=== PATIENT | male | born 1940 | race Two or more races ===

== ENCOUNTER 2019-04-18 13:39 | Day surgery (SDC) | payer MEDICARE ==
[~2019-04-18] VITALS: Ht 167.6 cm; Wt 93.1 kg
[2019-04-18] VITALS (8 sets, daily range): BP systolic 123–164; BP diastolic 62–83
[~2019-04-18 13:39] MED LIST: ACET-2119 PO; ASPI-611 PO; ATOR10TA87 PO; BISA10SU60 RC; DOCU-28 PO; FLO0.4C PO; HYDR-4353 PO; IPRA3AMP31 IH; LINA290C PO; LIPA1CAP28 PO; MAGN800O PO; METO25TA6 PO; NA P133E4 RC; NORCO10T PO; OMEP40CA13 PO; TEMA15CA5 PO; maalox
[2019-04-18] MEDS ORDERED: normal saline 1,000 ML IV SCH (14:00)
[2019-04-18] MEDS ORDERED: diphenhydrAMINE 25mg capsule PO PRN (14:00)
[2019-04-18] MEDS ORDERED: LORazepam 0.5 MG tablet PO PRN (14:00)
[2019-04-18] MEDS ORDERED: RIVA20TA PO (14:12)
[2019-04-18] MEDS ORDERED: ROSU20TA2 PO (14:12)
[2019-04-18] MEDS ORDERED: POTA20TA10 PO (14:12)
[2019-04-18] MEDS ORDERED: FURO40TA4 PO (14:12)
[2019-04-18] MEDS ORDERED: midazolam 2 mg/2 ml injection ONE (16:14)
[2019-04-18] MEDS ORDERED: LIDOcaine 1% (10mg/ml)w/preservative injection 20ml MDV ONE (16:14)
[2019-04-18] MEDS ORDERED: fentaNYL/PF 50MCG/1 ML 2ML syringe ONE (16:14)
[2019-04-18] MEDS ORDERED: iohexol 350MG/ML 100ml bottle IV ONE (16:14)
[2019-04-18] MEDS ORDERED: OXAZEpam 15mg capsule PO PRN (18:25)
[2019-04-18] MEDS ORDERED: proCHLORperazine 10 MG/2 ml inj IV PRN (18:25)
[2019-04-18] MEDS ORDERED: ondansetron/PF 4mg/2ml inj IV PRN (18:25)
== END 2019-04-18 19:40 | disposition home or self-care (01) ==
LOC: SSTAY O 13:39
PROVIDERS: ATTEND Internal Medicine Interventional Cardiology
DX: R07.89 Other chest pain (principal); I25.10 Atherosclerotic heart disease of native coronary artery without angina pectoris; E78.5 Hyperlipidemia, unspecified; G47.33 Obstructive sleep apnea (adult) (pediatric); I35.0 Nonrheumatic aortic (valve) stenosis; Z95.5 Presence of coronary angioplasty implant and graft; Z79.899 Other long term (current) drug therapy; Z79.82 Long term (current) use of aspirin; Z95.2 Presence of prosthetic heart valve; Z87.891 Personal history of nicotine dependence
CPT/HCPCS: 93005; 93454; 99152; C1769; J1644; J2001; J2250; J3010; J7030; Q0163; Q9967; A4620; A6258

== ENCOUNTER 2019-06-12 18:08 | Emergency (ER) | payer MEDICARE ==
[~2019-06-12] VITALS: Ht 167.6 cm; Wt 90.9 kg
[~2019-06-12 18:08] MED LIST changes: -ACET-2119 PO; -ATOR10TA87 PO; -BISA10SU60 RC; -DOCU-28 PO; -FLO0.4C PO; +FURO40TA4 PO; -HYDR-4353 PO; -IPRA3AMP31 IH; -LINA290C PO; -LIPA1CAP28 PO; -MAGN800O PO; -METO25TA6 PO; -NA P133E4 RC; -OMEP40CA13 PO; +POTA20TA10 PO; +RIVA20TA PO; +ROSU20TA2 PO; -TEMA15CA5 PO; -maalox
[2019-06-12 18:36] VITALS: BP 140/69
[2019-06-12] MEDS ORDERED: ondansetron 4mg rapidly disintigrating tab PO ONE (20:45)
[2019-06-12] MEDS ORDERED: HYDROcodone/acetaminophen 5mg/325mg tablet PO ONE (20:45)
== END 2019-06-12 21:14 | disposition home or self-care (01) ==
LOC: ER 18:08
DX: S80.11XA Contusion of right lower leg, initial encounter (principal); W22.8XXA Striking against or struck by other objects, initial encounter; Y93.89 Activity, other specified; Y92.89 Other specified places as the place of occurrence of the external cause; Y99.9 Unspecified external cause status
CPT/HCPCS: 73552; 99283

== ENCOUNTER 2023-12-08 12:30 | Inpatient (IN) | payer MEDICARE ==
[~2023-12-08] VITALS: Ht 165.1 cm; Wt 95.3 kg
[~2023-12-08 12:30] MED LIST changes: -ASPI-611 PO; -FURO40TA4 PO; -POTA20TA10 PO; -RIVA20TA PO; -ROSU20TA2 PO
[2023-12-30] MEDS ORDERED: APIX5TAB3 PO (14:37)
[2023-12-30] MEDS ORDERED: METO-395 PO (14:37)
[2023-12-30] MEDS ORDERED: CLOP75TA34 PO (14:37)
[2023-12-30] MEDS ORDERED: CYCL-394 PO (14:37)
[2023-12-30] MEDS ORDERED: FLO0.4C PO (14:37)
[2023-12-30 15:11] LABS: BILIRUBIN,URINE NEGATIVE (Neg); CLARITY,URINE SLIGHTLY CLOUDY (Clear); COLOR,URINE YELLOW (Yellow); GLUCOSE, URINE NEGATIVE (Neg); KETONES,URINE NEGATIVE (Neg); LEUKOCYTE ESTERASE ,URINE TRACE (Neg); NITRITES, URINE NEGATIVE (Neg); OCCULT BLOOD,URINE TRACE-INTACT (Neg); PROTEIN,URINE NEGATIVE (Neg); UROBILINOGEN,URINE 0.2 E.U/dL (0.2-1.0)
[2023-12-30 15:18] LABS: BASOPHILS % (AUTO) 0.5 % (0-1); EOSINOPHILS # (AUTO) 0.2 X10'3 (0-0.9); LYMPHOCYTES # (AUTO) 1.7 X10'3 (1.1-4.8); LYMPHOCYTES % (AUTO) 30.8 % (21-51); MEAN CORPUSCULAR HEMOGLOBIN 32.2 PG (27.0-31.0); MEAN CORPUSCULAR HGB CONC 33.8 g/dL (33.0-36.5); MEAN CORPUSCULAR VOLUME 95.2 FL (78-98); MONOCYTES # (AUTO) 0.6 X10'3 (0-0.9); MONOCYTES % (AUTO) 11.5 % (2-12); NEUTROPHILS # (AUTO) 2.9 X10'3 (1.8-7.7); NEUTROPHILS % (AUTO) 54.2 % (42-75); PRE OP HEMOGLOBIN 13.5 g/dL (14.0-17.9); PRE OP PLATELET COUNT 155 X10'3 (140-440); PRE OP WHITE BLOOD COUNT 5.4 10'3 (4.8-10.8); RED CELL DISTRIBUTION WIDTH 14.6 % (11.5-14.5)
[2023-12-30 15:22] LABS: PRE OP INR 1.2 INR; PRE OP PROTIME 12.5 SECONDS (9.0-12.0)
[2023-12-30 15:22] LABS: UA COLLECTION TYPE CLN CATCH MIDSTREAM
[2023-12-30 15:23] LABS: BACTERIA,URINE 2+ /HPF (Neg); SQUAMOUS EPITHELIAL CELL,UR FEW /LPF (FEW); WBC CLUMPS,URINE MODERATE /HPF (NEGATIVE)
[2023-12-30 15:24] LABS: RBC,URINE 0-2 /HPF (0-2)
[2023-12-30 15:26] LABS: ALBUMIN 3.6 G/DL (3.4-5.0); ALKALINE PHOSPHATASE 48 IU/L (46-116); BLOOD UREA NITROGEN 11 MG/DL (7-18); BUN/CREATININE RATIO 14.5 (10.0-20.0); CHLORIDE 102 MMOL/L (99-107); CREATININE 0.76 MG/DL (0.60-1.10); PRE OP ALT 26 U/L (30-65); PRE OP ANION GAP 10 (8-16); PRE OP AST 26 U/L (10-37); PRE OP BILIRUB, TOTAL 1.2 MG/DL (0.0-1.0); PRE OP GLUCOSE 88 MG/DL (70-104); PRE OP POTASSIUM 3.4 MMOL/L (3.4-5.1); PRE OP SODIUM 138 MMOL/L (135-145); TOTAL CARBON DIOXIDE 26.4 MMOL/L (24-32); TOTAL PROTEIN 7.3 G/DL (6.4-8.2); eGFR > 90 ML/MIN
[2024-01-05] MEDS ORDERED: ROSU40TA PO (16:34)
[2024-01-06] VITALS (10 sets, daily range): BP systolic 133–176; BP diastolic 59–88; PULSE 62–72; RESP 14–20; TEMP 97.5; O2SAT 95–100
[2024-01-06] MEDS: cefazolin 2gm/D5W 100mL 100 ML IV ONE (05:30)
[2024-01-06] MEDS ORDERED: DOCUMENT DATE & TIME OF BETA-BLOCKER PO ONE (05:30)
[2024-01-06] MEDS ORDERED: ondansetron/PF 4mg/2ml inj IV PRN ×2 (05:30→11:35)
[2024-01-06] MEDS: famotidine 20mg tablet PO ONE (10:31)
[2024-01-06] MEDS: ringers solution, lacted 1,000 ML IV SCH (10:31)
[2024-01-06] MEDS: vancomycin 1,500 MG in NS 300ml IV soln IV ONE (10:32)
[2024-01-06] MEDS: HYDROcodone/acetaminophen 10/325mg tab PO ONE (10:38)
[2024-01-06] MEDS ORDERED: ringers solution, lacted 1,000 ML IV SCH (11:35)
[2024-01-06] MEDS ORDERED: morphine 4 MG/ML inj SYRINge IV PRN (11:35)
[2024-01-06] MEDS ORDERED: morphine 2 MG/ML inj. syringe IV PRN (11:35)
[2024-01-06] MEDS ORDERED: proCHLORperazine 10 MG/2 ml inj IV PRN (11:35)
[2024-01-06] MEDS ORDERED: meperidine/PF 25mg/ml syringe IV PRN ×3 (11:35)
[2024-01-06] MEDS ORDERED: LIDOcaine 1% (10mg/ml) 2ml vial ONE (11:40)
[2024-01-06] MEDS ORDERED: iohexol 350MG/ML 100ml bottle IV ONE (11:56)
[2024-01-06] MEDS ORDERED: sevoflurane 250ml liquid IH ONE (12:04)
[2024-01-06] MEDS ORDERED: fentaNYL/PF 50MCG/1 ML 2ML syringe ONE (12:08)
[2024-01-06] MEDS ORDERED: propofol inj 20 ML IV ONE (12:11)
[2024-01-06] MEDS ORDERED: rocuronium 10mg/ml inj IV ONE (12:11)
[2024-01-06] MEDS ORDERED: HYDROcodone/acetaminophen 10/325mg tab PO PRN (12:15)
[2024-01-06] MEDS ORDERED: cyclobenzaprine 10mg tablet PO PRN (12:15)
[2024-01-06] MEDS ORDERED: sugammadex 200mg/2ml injection IV ONE (12:27)
--- NOTE | 2024-01-06 12:40 | NUR ---
Received from OR via HOSPITAL BED, accompanied by Anesthesiologist DR. KENDRICK and report given by Anesthesiolgist.20G PIV IN PLACE WITH FLUIDS INFUSING PER MD ORDERS. TAMMY PERFORMED AND SHOWN TO HAVE "ABNORMAL FINDING", NO PROCEDURE PERFORMED AND PATIENT BROUGHT TO RECOVERY ROOM. DENIES PAIN. VSS ON 12L MASK.
--- NOTE | 2024-01-06 14:40 | NUR ---
PATIENT MEETS DISCHARGE CRITERIA FROM RECOVERY ROOM. DISCHARGE INSTRUCTIONS REVIEWED WITH PATIENT AND PATIENT'S , VANIA. PATIENT DRESSED, PIV DC'D WITHOUT COMPLICATIONS. PT AMBULATED TO WHEELCHAIR AND WHEELED DOWN TO PRIVATE VEHICLE WHERE GAVE TRANSPORT HOME WITH ALL BELONGINGS.
[2024-01-06] MEDS ORDERED: tamsulosin 0.4mg capsule PO SCH (21:00)
[2024-01-07] MEDS ORDERED: metoprolol succinate 25mg (24-HOUR) SR. Tablet PO SCH (08:00)
[2024-01-07] MEDS ORDERED: apixaban 5mg tablet PO SCH (08:00)
[2024-01-07] MEDS ORDERED: ROSUVASTATIN CALCIUM 5 MG TABLET PO SCH (08:00)
[2024-01-07] MEDS ORDERED: clopidogrel 75mg tablet PO SCH (08:00)
== END 2024-01-06 14:40 | disposition home or self-care (01) | DRG 310 ==
LOC: PAS IN 01-06 09:31
PROVIDERS: ADMIT Student in an Organized Health Care Education/Training Program; ATTEND Student in an Organized Health Care Education/Training Program
PROC: B24BZZ4 Ultrasonography of Heart with Aorta, Transesophageal (ICD-10-PCS; principal; 2024-01-06 12:04)
DX: I48.91 Unspecified atrial fibrillation (principal); I51.3 Intracardiac thrombosis, not elsewhere classified; Z53.8 Procedure and treatment not carried out for other reasons
CPT/HCPCS: 36415; 71046; 80053; 81001; 82948; 85025; 85610; 85730; 86885; 86900; 86901; 86920; 87077; 87081; 87088; 87186; 93005; 93312; 93325; A4618; A6258; A6449; J0690; J1644; J2704; J3010; J3370; J3490; J7040; J7120; Q9967

== ENCOUNTER 2025-01-23 13:58 | Outpatient (CLI) | payer MEDICARE ==
[~2025-01-23 13:58] MED LIST changes: +APIX5TAB3 PO; +CLOP75TA34 PO; +CYCL-394 PO; +METO-395 PO; +ROSU40TA PO; +TAMS-55 PO
[2025-01-23 14:44] LABS: MEAN PLATELET VOLUME 7.5 FL (7.4-10.4); RED CELL DISTRIBUTION WIDTH 14.9 % (11.5-14.5)
[2025-01-23 14:56] LABS: CREATININE 0.83 MG/DL (0.60-1.10); TOTAL CARBON DIOXIDE 28.6 MMOL/L (24-32); eGFR 89 ML/MIN
--- NOTE | 2025-01-24 18:58 | RADIOLOGY REPORT ---
CT CTA PRE WATCHMAN INDICATION: SICK SINUS SYNDROME TECHNIQUE: CT cardiac imaging for pulmonary vein analysis has been obtained. 3- D, MIP, and MPR images obtained. All CT scans at this facility use dose modulation, iterative reconstruction, and/or weight based dosing when appropriate to reduce radiation dose to as low as reasonably achievable. COMPARISON: None STUDY QUALITY: Good FINDINGS: PULMONARY VEINS (PV): Conventional drainage into left atrium 2 pulmonary vein ostia on the right and 2 on the left Ostial measurements are as follows: Right superior vein ostium: 17 mm right inferior vein ostium: 10 mm Left superior vein ostium: 22 mm Left inferior vein ostium: 7 mm Left atrial appendage suspected distal thrombus measuring 2.1 cm in length. Left atrial appendage ostium area measures 710.6 mm2. Left atrial appendage ostium circumference 102 mm, diameter 35.8 mm PROXIMITY OF ESOPHAGUS TO PV: Esophagus lies at the midline and closely courses to the posterior aspect of the left atrium Left inferior pulmonary vein ostium is approximately 19 mm from the esophagus Left superior pulmonary vein is 12 mm away from the esophagus The right pulmonary vein ostia lie approximately 6 mm away from the esophagus. CARDIAC CHAMBERS: No intracardiac thrombus. Question left ventricular hypertrophy with possible basal septal hypertrophy measuring up to 2.2 cm however limited evaluation. If clinically indicated, consider cardiac MRI. OTHER: Question ascending aortic aneurysmal dilation measuring 4 cm. Triple-vessel coronary artery calcifications. Phleboliths in the pelvis. note not a dedicated evaluation of the coronary arteries. Atelectasis in bilateral bases. Tracheal secretions. Diffuse inconspicuous peribronchial thickening. Trace bronchitis not excluded. IMPRESSION: Conventional pulmonary venous drainage into left atrium. No pulmonary vein stenosis. Left atrial appendage suspected distal thrombus measuring 2.1 cm in length. Question left ventricular hypertrophy with possible basal septal hypertrophy measuring up to 2.2 cm however limited evaluation. If clinically indicated, consider cardiac MRI.
== END 2025-01-23 23:59 | disposition home or self-care (01) ==
LOC: RAD 13:58
PROVIDERS: ATTEND Internal Medicine Interventional Cardiology
DX: I49.5 Sick sinus syndrome (principal); I87.8 Other specified disorders of veins; J98.11 Atelectasis
CPT/HCPCS: 36415; 71275; 75572; 80053; 85025; Q9967